=== PATIENT | female | born 1940 | race Caucasian/White ===

== ENCOUNTER 2016-05-13 05:11 | Inpatient (IN) | payer OTHER, MEDICARE ==
[2016-04-15 09:55] VITALS: BMI 31.0
--- NOTE | 2016-04-15 10:28 | PAT Medication Instructions ---
Service Date Apr 15, 2016. Current Home Medication List Acetaminophen (Tylenol Arthritis Ext Rel), 1,300 MG PO PRN Calcium Carbonate-Vitamin D (Calcium + D), 1 TAB PO BID Cyanocobalamin (Vitamin B12 500MCG), 1,000 MCG PO QPM Gabapentin (Neurontin), 300 MG PO TID PRN for RN Lisinopril (Zestril), 10 MG PO QAM Metoprolol Succ (Toprol Xl) (Toprol-Xl), 50 MG PO QPM Omeprazole (Prilosec), 40 MG PO QPM Pravastatin (Pravachol ), 80 MG PO QPM Medication Instructions For Your Scheduled Surgery - Hold the following medications the morning of surgery: Lisinopril (Zestril), 10 MG PO QAM Calcium Carbonate-Vitamin D (Calcium + D), 1 TAB PO BID - Take the following medications the morning of surgery with a sip of water: Gabapentin (Neurontin), 300 MG PO TID PRN for RN Acetaminophen (Tylenol Arthritis Ext Rel), 1,300 MG PO PRN - Take the following medications as scheduled the night before surgery: Omeprazole (Prilosec), 40 MG PO QPM Pravastatin (Pravachol ), 80 MG PO QPM Metoprolol Succ (Toprol Xl) (Toprol-Xl), 50 MG PO QPM Gabapentin (Neurontin), 300 MG PO TID PRN for RN Cyanocobalamin (Vitamin B12 500MCG), 1,000 MCG PO QPM Calcium Carbonate-Vitamin D (Calcium + D), 1 TAB PO BID Acetaminophen (Tylenol Arthritis Ext Rel), 1,300 MG PO PRN If you have any questions please call us at [phone] (Brenda Isbell PA-C) or [phone] or [phone]
[2016-04-15 11:21] LABS: BASO % 0.5 %; BASO ABS # 0.03 K/uL (0-0.2); COMPLETE YES; EOS % 1.1 %; HEMATOCRIT 35.3 % (37-47); IG% 0.2 %; LYMPH % 26.4 %; LYMPH ABS # 1.63 K/uL (1.2-3.4); MEAN CELL VOLUME 91.9 fL (80-100); MEAN CORPUSCULAR HEMOGLOBIN 30.2 pg (25-34); MEAN CORPUSCULAR HGB CONC 32.9 g/dl (32-36); MEAN PLATELET VOLUME 10.1 fL (7.4-10.4); MONO % 9.2 %; NEUT % 62.6 %; PLATELET COUNT 202 K/uL (130-400); RED BLOOD COUNT 3.84 M/uL (4.2-5.4); WHITE BLOOD COUNT 6.18 K/uL (4.8-10.8)
[2016-04-15 11:28] LABS: URINE APPEARANCE CLEAR (CLEAR); URINE BILIRUBIN NEG (NEG); URINE COLOR YELLOW; URINE NITRITE NEG (NEG); URINE PH 7.5 (4.5-7.5); URINE SPECIFIC GRAVITY 1.007 (1.000-1.030); UROBILINOGEN NEG (NEG)
[2016-04-15 11:32] LABS: MANUAL MICROSCOPIC REQUIRED? NO; REVIEW REQ? NO
--- NOTE | 2016-04-15 11:34 | DIAGNOSTIC IMAGING REPORT ---
CHEST PREADMISSION(PA/LAT) HISTORY: Preop. COMPARISON: None. FINDINGS: No pneumothorax. No pleural effusions. There are low lung volumes. The heart is borderline enlarged. Mildly tortuous thoracic aorta. A 6 mm nodule within the left lower lobe likely represents a calcified granuloma. Mild interstitial thickening within the mid lung zones. Posterior lumbar spinal fusion hardware is noted. IMPRESSION: 1. Mild interstitial thickening within the mid lung zones. This is likely chronic. 2. The heart is borderline enlarged. Electronically signed by: Chris Baeza M.D. 04/15/2016 11:32 AM
[2016-04-15 12:14] LABS: BUN/CREATININE RATIO 18.7 (10-20); CALCIUM 10.5 mg/dl (8.5-10.1); CREATININE 0.65 mg/dl (0.60-1.20); POTASSIUM 4.1 mmol/L (3.5-5.1)
[~2016-05-13] VITALS: Ht 154.9 cm; Wt 74.4 kg
[2016-05-13] VITALS (16 sets, daily range): BP systolic 120–196; BP diastolic 66–94; PULSE 65–99; TEMP 36.5–37.5; O2SAT 97–100; Ht 154.9 cm; Wt 74.4 kg
[~2016-05-13 05:11] MED LIST: ACET1TAB84 PO; CALC600T9 PO; CYAN500T13 PO; GABA-113 PO; LISI-461 PO; METO50TA7 PO; OMEP40CA PO; PRAV20TA PO
[2016-05-13] MEDS ORDERED: LACTATED RINGER'S 1000ML 1,000 ML IV SCH (06:00)
[2016-05-13] MEDS ORDERED: CEFAZOLIN 1000MG/55 ML D5W IV SCH (06:00)
[2016-05-13] MEDS ORDERED: ATROPINE SULFATE 0.1 MG/ML 5ML SYR IV PRN (07:00)
[2016-05-13] MEDS ORDERED: ONDANSETRON INJ 2 MG/ML 2 ML VIAL IV PRN ×2 (07:00→09:30)
[2016-05-13] MEDS ORDERED: FENTANYL CITRATE INJ 50 MCG/1 ML 2 ML VIAL IV PRN (07:00)
[2016-05-13] MEDS ORDERED: EpHEDrine SULFATE INJ 50 MG/ML AMP IV PRN (07:00)
[2016-05-13] MEDS ORDERED: MoRPHine SULFATE 10 MG/ML CARP/VIAL IV PRN (07:00)
[2016-05-13] MEDS ORDERED: FENTANYL CITRATE INJ 50 MCG/1 ML 2 ML VIAL ONE (07:02)
[2016-05-13] MEDS ORDERED: MIDAZOLAM HCL 1 MG/ML 2ML VIAL ONE (07:02)
[2016-05-13] MEDS ORDERED: KETAMINE HCL INJ 50 MG/ML 10 ML VIAL ONE (07:03)
--- NOTE | 2016-05-13 07:20 | History & Physical Bridge Note ---
H&P Re-Evaluation Bridge Note: I have examined the patient, reviewed the History & Physical and in the interval since the performance of the History & Physical I have noted the following changes of clinical significance: No changes noted
--- NOTE | 2016-05-13 07:23 | History and Physical ---
History & Physical Date May 13, 2016. Chief Complaint neck and arm pain History of Present Illness The patient is a 76 year old female with complaints of Additional History Hepatic Disease: No Endocrine Disorder: No Kidney Disease: No Hypertension: No Heart Disease: No Bleeding Tendencies: No Infectious Diseases: No Allergies Coded Allergies: Sulfa Antibiotics (Verified Allergy, Unknown, ITCHY RASH, 05/13/16) Home Medications Scheduled Acetaminophen (Tylenol Arthritis Ext Rel), 1,300 MG PO PRN Calcium Carbonate-Vitamin D (Calcium + D), 1 TAB PO BID Cyanocobalamin (Vitamin B12 500MCG), 1,000 MCG PO QPM Lisinopril (Zestril), 10 MG PO QAM Metoprolol Succ (Toprol Xl) (Toprol-Xl), 50 MG PO QPM Omeprazole (Prilosec), 40 MG PO QAM Pravastatin (Pravachol ), 80 MG PO QPM Scheduled PRN Gabapentin (Neurontin), 300 MG PO TID PRN for RN Physical Examination Skin: warm/dry, no rash Eyes: normal inspection, EOMI, sclerae normal ENT: normal ENT inspection, pharynx normal Head: normocephalic, atraumatic Neck: supple, no adenopathy, trachea midline Respiratory/Chest: lungs clear, normal breath sounds, no respiratory distress Cardiovascular: regular rate, rhythm, no edema, no murmur Abdomen / GI: normal bowel sounds, non tender Back: normal inspection Extremities: normal inspection, normal range of motion Neurologic/Psych: no motor/sensory deficits, alert, normal reflexes, oriented x 3 Diagnosis cervical stenosis Plan of Treatment c5 corpectomy with acdf c6-7
[2016-05-13] MEDS ORDERED: HYDROmorphone INJ 2 MG/ML SYR/VIAL ONE (07:51)
[2016-05-13] MEDS ORDERED: SODIUM CHLORIDE 0.9% INJ 10 ML VIAL ONE (08:17)
[2016-05-13] MEDS ORDERED: DEXAMETHASONE SOD INJ 4 MG/ML VIAL ONE (08:17)
[2016-05-13] MEDS ORDERED: GLYCOPYRROLATE INJ 0.2 MG/ML VIAL ONE (08:17)
[2016-05-13] MEDS ORDERED: PROPOFOL IV EMULSION 10 MG/ML 20 ML VIAL IV ONE (08:17)
[2016-05-13] MEDS ORDERED: ONDANSETRON INJ 2 MG/ML 2 ML VIAL ONE (08:17)
[2016-05-13] MEDS ORDERED: DiphenhydrAMINE HCL 50 MG/ML VIAL ONE (08:17)
[2016-05-13] MEDS ORDERED: METOCLOPRAMIDE HCL INJ 5 MG/ML 2 ML VIAL ONE (08:17)
[2016-05-13] MEDS ORDERED: ROCURONIUM BROMIDE 10 MG/ML 5 ML VIAL ONE (08:17)
[2016-05-13] MEDS ORDERED: LIDOCAINE HCL 2% 2 ML VIAL (20MG/ML) ONE (08:17)
[2016-05-13] MEDS ORDERED: CEFAZOLIN SOD 1 GM VIAL ONE (08:17)
[2016-05-13] MEDS ORDERED: NEOSTIGMINE METHYLSULFATE 1 MG/ML 10ML VIAL ONE (08:17)
[2016-05-13] MEDS ORDERED: BACITRACIN 50000 UNIT VIAL IR ONE (09:15)
[2016-05-13] MEDS ORDERED: FLOSEAL HEMOSTATIC MATRIX 5ML TOP ONE (09:15)
--- NOTE | 2016-05-13 09:24 | [facility] Post Operative Brief Note ---
Immediate Operative Summary Operative Date May 13, 2016. Pre-Operative Diagnosis Cervical stenosis Post-Operative Diagnosis Cervical stenosis Procedure(s) Performed C6-C7 Anterior Cervical Discectomy and Fusion; C5 Removal of Intervertebral Disc; Corpectomy C5 C6-C7 Decompression; Placement of Prosthetic Spacer C6-C7/Denisse Allograft; Anterior Plate and Screw Fixation Surgeon Dr. Amish Kelly Green Hide Inspector Surgeon(s) KIM Verduzco Estimated Blood Loss 150mL Findings stenosis Specimens None per surgeon
[2016-05-13] MEDS ORDERED: HYDROmorphone INJ 1 MG/ML SYR IV PRN (09:30)
[2016-05-13] MEDS ORDERED: DO NOT ADMINISTER PNEUMOCOCCAL VACCINE PRN ×2 (09:30)
[2016-05-13] MEDS ORDERED: NALOXONE HCL 0.4 MG/1 ML VIAL/CARP IV PRN (09:30)
[2016-05-13] MEDS ORDERED: DEXAMETHASONE INJ 8 MG in SYRINGE 0 ML IV PRN (09:30)
[2016-05-13] MEDS ORDERED: RACEPINEPHRINE 2.25% NEBU SOLN 0.5 ML VIAL INH PRN (09:30)
[2016-05-13] MEDS ORDERED: OXYCODONE HCL IR 5 MG TAB (IMMEDIATE RELEASE) PO PRN (09:30)
[2016-05-13] MEDS ORDERED: MAGNESIUM HYDROXIDE SUSP 30 ML UDC PO PRN (09:30)
[2016-05-13] MEDS ORDERED: GABAPENTIN 300 MG CAP PO PRN (09:30)
[2016-05-13] MEDS ORDERED: LORAZEPAM 0.5 MG TAB PO PRN (09:30)
[2016-05-13] MEDS ORDERED: DO NOT ADMINISTER FLU VACCINE PRN ×3 (09:30)
[2016-05-13] MEDS ORDERED: ACETAMINOPHEN IV 1,000 MG in EMPTY BAG 0 ML IV PRN (09:30)
[2016-05-13] MEDS ORDERED: LORAZEPAM INJ 0.5 MG in SYRINGE 0.75 ML IV PRN (09:30)
[2016-05-13] MEDS ORDERED: DiphenhydrAMINE HCL 50 MG/ML VIAL IV PRN (09:30)
[2016-05-13] MEDS ORDERED: EpHEDrine SULFATE 50MG/5ML SYR ONE (09:45)
--- NOTE | 2016-05-13 10:01 | DIAGNOSTIC IMAGING REPORT ---
Cervical spine CERVICAL 2 OR 3 VIEWS CLINICAL HISTORY: C6-C7 ACDF, C5 REMOVAL OF DISC, C6-C7 DECOMPRESSION TECHNIQUE: Image intensifier COMPARISON STUDY: None FINDINGS: Image intensifier images used for an anterior cervical fusion and revision. IMPRESSION: Anterior cervical fusion and revision Electronically signed by: Rk Cleary M.D. 05/13/2016 10:00 AM Dictated Date/Time: 05/13/2016 9:59 AM
--- NOTE | 2016-05-13 10:45 | Anesthesiology Progress Note ---
Anesthesia Post Op Note Date & Time May 13, 2016 at 10:45 Vital Signs Pain Intensity: 0 Vital Signs Past 12 Hours Date Time Temp Pulse Resp B/P Pulse Ox O2 Delivery O2 Flow Rate FiO2 05/13/16 10:40 70 19 168/90 100 Nasal Cannula 2 05/13/16 10:30 73 19 175/79 100 Nasal Cannula 2 05/13/16 10:20 76 20 173/61 100 Nasal Cannula 2 05/13/16 10:10 66 15 158/76 100 Nasal Cannula 2 05/13/16 10:00 71 15 170/77 100 Nasal Cannula 2 05/13/16 09:50 36.6 64 14 164/76 100 Mask 10 05/13/16 09:40 36.6 65 16 163/79 100 Mask 10 05/13/16 05:42 36.7 65 18 196/83 100 Room Air Notes Mental Status: alert / awake / arousable, participated in evaluation Pt Amnestic to Procedure: Yes Nausea / Vomiting: adequately controlled Pain: adequately controlled Airway Patency, RR, SpO2: stable & adequate BP & HR: stable & adequate Hydration State: stable & adequate Anesthetic Complications: no major complications apparent
--- NOTE | 2016-05-13 11:18 | OPERATIVE REPORT ---
DATE OF OPERATION: 05/13/2016 PREOPERATIVE DIAGNOSIS: Cervical spondylosis with myeloradiculopathy. POSTOPERATIVE DIAGNOSIS: Same. PROCEDURE PERFORMED: 1. Anterior cervical corpectomy, bilateral foraminotomy C5. 2. Anterior cervical discectomy, bilateral foraminotomies, C6-C7. 3. Anterior cervical arthrodesis C4-C6, C6-C7. 4. Placement of PEEK cage 19 mm in height at C4-C6 and 7 mm at C6-C7. 5. Placement of Broussard plate and screws C4-C7. 6. Placement of locally harvested morcellized autograft combined with Denisse bone graft in the interbody spaces. SURGEON: Dr. Amish Kelly. SALES ASSOCIATE: None. ANESTHESIA: General. DISPOSITION: The patient awakened and taken to PACU in stable condition. HISTORY OF PATIENT'S PROBLEMS: This is a 76-year-old female that presents with above-mentioned diagnosis. After failing an extensive course of nonoperative care, elected to undergo the above-mentioned procedure. Risks, benefits, pros, cons, and alternatives were outlined in detail preoperatively. PROCEDURE: The patient was met preoperatively, case discussed and all questions were addressed. At that point the patient was taken back to operative suite and after undergoing successful general inhalation by the department of anesthesia was placed in supine position on Shabbir table with head in Quick head coach. All bony prominences were well padded and the eyes were inspected to ensure there was no external pressure placed upon them. At this point, the anterior cervical spine was prepped and draped in normal sterile fashion. With assistance of fluoroscopy, we identified the C5-C6 disc space and transverse incision was placed along the right anterior aspect of the cervical spine overlying this region. Sharp dissection with the assistance of bipolar electrocautery performed down to and exposing the anterior cervical spine from C4-C7. A self-retaining retractor was placed. I then performed a complete discectomy of C4-5 and C5-6 out to the uncovertebral joints bilaterally. Waldron distracting pins were then placed in C4 and C6 to distract across the C5 vertebral body. A complete corpectomy was then performed including removal of all posterior annular fibers and longitudinal ligament to address any compression. Endplates were then burred to subcortical bleeding bone and a 19 mm PEEK cage filled with locally harvested morcellized autograft and Denisse bone grafting tapped into position. I then proceeded to C6-7. Again, a complete discectomy was performed, endplates curetted to subcortical bleeding bone and removal of all posterior annular fibers and longitudinal ligaments from bilateral foraminotomies. The endplates were then burred to subcortical bleeding bone and a 7 mm PEEK cage filled with Denisse bone grafting and autograft tapped into position. Distracting apparatus was removed. All anterior osteophytes burred to a smooth cortical surface and Broussard plate and screws applied with the assistance of fluoroscopy. The incision was then copiously irrigated, explored to ensure there was no damage to surrounding structures or remaining bleeding. A 10 round MARTHA drain inserted. It was then closed with 2-0 Vicryl in the fascia, 4-0 Monocryl for final skin closure. Steri-Strips and sterile dressing placed. The patient was awakened and taken to PACU in stable condition. I attest to the content of the Intraoperative Record and any orders documented therein. Any exceptio ns are noted below.
[2016-05-13] MEDS ORDERED: LARYING-O-JET KIT (LTA) EXT ONE ×2 (11:39)
[2016-05-13] MEDS ORDERED: SCOPOLAMINE 1.5 MG TDSY TD SCH (12:00)
[2016-05-13] MEDS: LACTATED RINGER'S 1000ML 1,000 ML IV SCH ×2 (12:04→22:04)
[2016-05-13] MEDS: DEXAMETHASONE INJ 6 MG in SYRINGE 0 ML IV SCH ×2 (12:05→20:06)
[2016-05-13] MEDS: CHECK SCOPOLAMINE PATCH PLACEMENT SCH ×2 (15:53→23:46)
[2016-05-13] MEDS: CEFAZOLIN IV 1,000 MG in DEXTROSE 5% 50ML 50 ML IV SCH ×2 (15:58→23:45)
[2016-05-13] MEDS ORDERED: RXC5 PO (16:21)
--- NOTE | 2016-05-13 16:22 | Discharge Instructions ---
Discharge Instructions Admission Reason for Admission: Cervical Spinal Stenosis Discharge Discharge Diagnosis / Problem: cervical stenosis Discharge Goals Goal(s): Improve function Activity Recommendations Activity Limitations: per Instructions/Follow-up section . Instructions / Follow-Up Instructions / Follow-Up ACTIVITY RECOMMENDATIONS: SELF CARE INSTRUCTIONS AFTER CERVICAL FUSIONS 1. No smoking. Smoking drastically decreases the chance of a solid fusion. 2. No bending, lifting more than 5 pounds, or twisting (roll like a log when turning in bed). 3. You may shower 3 days after surgery. Thoroughly dry wound. Do not soak in the tub. 4. Cervical collar: Must be worn at all times including sleeping. You may remove the brace only to bath, eat and if you are sitting in a recliner. 5. Please walk as much as you can for exercise. Gradually increase the distance that you walk as your endurance increases. SPECIAL CARE INSTRUCTIONS: VERY IMPORTANT TO READ AND REVIEW A. Do not take any anti-inflammatory medications (i.e. Indocin, Advil, Aspirin, Naprosyn, Aleve, Motrin, etc.) as these may inhibit the chance of a solid fusion. Tylenol is okay to take. B. Your surgical incision has been closed with a cosmetic suture under the skin that will dissolve in about 6 weeks. In 14 days, you can use a pair of clean scissors and cut the suture that is left outside of the skin at the ends of your incision. C. Complications are uncommon, but please contact us if you have any signs or symptoms of: 1. wound infection (fever higher than 102.5 degrees F, redness, separation of wound, drainage, or increasing pain from the incision) 2. blood clots in legs (pain, swelling, redness and warmth in legs) 3. urinary tract infection (fever higher than 102.5 degrees, burning upon urination or increased frequency of urination) 4. nerve problems (inability to walk on your toes or heels, numbness, loss of bowel or bladder control) 5. any other symptoms that concern you. D. Please call the office at if you have any concerns or questions about your operation or recovery. MANAGING PAIN AFTER SPINAL SURGERY 1. Narcotic medication is intended for short-term use and will be provided for surgical pain. Surgical pain usually lasts for a period of 4-6 weeks. Narcotic medication includes Percocet, Vicodin, Darvocet, Tylenol #3 or Lortab. 2. Longer-term pain is more appropriately treated with non-narcotic medication such as Tylenol ES. 3. Muscle spasm is not appropriately treated with narcotics. Muscle relaxers such as Soma, Flexeril or Skelaxin can be used along with Tylenol ES. 4. Remember that we all live with some "aches and pains". This is not unusual or uncommon after an injury or as we get older. 5. We will provide appropriate medication within the normal guidelines of their prescribed use. We will also be very cautious and aware of potential abuse and extended duration of patients' medication needs. 6. Please allow 2-3 days to process refills. Prescriptions will not be mailed but must be picked up at the office. FOLLOW UP VISIT: Keep your scheduled follow-up appointment. Any questions, please call the office at . Current Hospital Diet Patient's current hospital diet: Clear Liquid Diet Discharge Diet Recommended Diet: Regular Diet Procedures Procedures Performed: C6-C7 Anterior Cervical Discectomy and Fusion; C5 Removal of Intervertebral Disc; Corpectomy C5 C6-C7 Decompression; Placement of Prosthetic Spacer C6-C7/Denisse Allograft; Anterior Plate and Screw Fixation Pending Studies Studies pending at discharge: no Medical Emergencies . Who to Call and When: Medical Emergencies: If at any time you feel your situation is an emergency, please call 911 immediately. . Non-Emergent Contact Non-Emergency issues call your: Primary Care Provider . "Provider Documentation" section prepared by Amish Kelly. VTE Core Measure Inpt VTE Proph given/why not?: Markel Perdomo, SCD's
[2016-05-13] MEDS ORDERED: METOPROLOL SUCC 50MG EXT REL TAB PO SCH (21:00)
[2016-05-13] MEDS ORDERED: PRAVASTATIN SOD 40 MG TAB PO SCH (21:00)
[2016-05-13] MEDS: DOCUSATE SODIUM 100 MG CAP PO SCH (22:03)
[2016-05-14] VITALS (13 sets, daily range): BP systolic 117–161; BP diastolic 62–77; PULSE 72–99; TEMP 36.8–37.3; O2SAT 97–100
[2016-05-14] MEDS: DEXAMETHASONE INJ 6 MG in SYRINGE 0 ML IV SCH (03:56)
[2016-05-14] MEDS: CEFAZOLIN IV 1,000 MG in DEXTROSE 5% 50ML 50 ML IV SCH (07:49)
[2016-05-14] MEDS: CHECK SCOPOLAMINE PATCH PLACEMENT SCH (07:50)
[2016-05-14] MEDS: DOCUSATE SODIUM 100 MG CAP PO SCH (07:53)
--- NOTE | 2016-05-14 08:30 | DISCHARGE SUMMARY ---
DATE OF DISCHARGE: 05/14/16 PRINCIPAL DIAGNOSIS: Cervical spinal stenosis. HOSPITAL COURSE FOLLOWS: On 05/13/16 patient underwent anterior cervical corpectomy, ACDF. Tolerated this well. Taken to orthopedic floor postoperatively. Postop day #1 she was doing well. No hoarseness, arm symptoms markedly improved. MARTHA drain decreased appropriately. Discharge orders on final chart for review.
[2016-05-14] MEDS ORDERED: LISINOPRIL 10 MG TAB PO SCH (09:00)
[2016-05-14] MEDS ORDERED: PANTOprazole SOD 40 MG TAB PO SCH (09:00)
--- NOTE | 2016-05-14 10:01 | Anesthesiology Progress Note ---
Anesthesia Post Op Note Date & Time May 14, 2016 at 10:01 Vital Signs Pain Intensity: 0.0 Vital Signs Past 12 Hours Date Time Temp Pulse Resp B/P Pulse Ox O2 Delivery O2 Flow Rate FiO2 05/14/16 08:05 36.8 74 16 154/77 97 Room Air 05/14/16 08:02 36.8 73 16 138/70 98 Room Air 05/14/16 07:57 72 14 97 Room Air 05/14/16 06:05 37.2 80 16 161/69 99 Nasal Cannula 2.0 05/14/16 04:01 36.9 76 16 131/74 98 Nasal Cannula 2.0 Humidified Oxygen 05/14/16 03:40 36.9 76 16 131/74 98 Nasal Cannula 2.0 Humidified Oxygen 05/14/16 03:21 76 14 100 Nasal Cannula 2.0 05/14/16 02:00 37.1 81 16 117/68 100 Nasal Cannula 2.0 Humidified Oxygen 05/14/16 00:03 37.3 99 16 120/66 100 Nasal Cannula 2.0 Humidified Oxygen 05/14/16 00:00 100 Nasal Cannula 2.0 Humidified Oxygen 05/13/16 23:40 37.3 99 16 120/66 100 Nasal Cannula 2.0 Humidified Oxygen 05/13/16 23:26 82 14 100 Nasal Cannula 2.0 Notes Mental Status: alert / awake / arousable, participated in evaluation Pt Amnestic to Procedure: Yes Nausea / Vomiting: adequately controlled Pain: adequately controlled Airway Patency, RR, SpO2: stable & adequate BP & HR: stable & adequate Hydration State: stable & adequate Anesthetic Complications: no major complications apparent
[2016-05-15] MEDS ORDERED: BISACODYL 5 MG TABEC PO PRN (06:00)
[2016-05-15] MEDS ORDERED: BISACODYL 10 MG SUPP PR PRN (06:00)
[2016-05-16] MEDS ORDERED: POLYETHYLENE (MIRALAX) 17 GM PACK PO SCH (09:00)
== END 2016-05-14 13:13 | disposition home or self-care (01) | DRG 472 ==
LOC: ENRESERVTM → ENRESERVDT → C.ACU 05:11 → C.3E 07:00
PROVIDERS: ADMIT Orthopaedic Surgery Orthopaedic Surgery of the Spine; ATTEND Orthopaedic Surgery Orthopaedic Surgery of the Spine
PROC: 0RG2070 Fusion of 2 or more Cervical Vertebral Joints with Autologous Tissue Substitute, Anterior Approach, Anterior Column, Open Approach (ICD-10-PCS; principal; 2016-05-13 07:30)
PROC: 01N10ZZ Release Cervical Nerve, Open Approach (ICD-10-PCS; principal; 2016-05-13 07:30)
PROC: 0RT30ZZ Resection of Cervical Vertebral Disc, Open Approach (ICD-10-PCS; principal; 2016-05-13 07:30)
PROC: 0RG20A0 Fusion of 2 or more Cervical Vertebral Joints with Interbody Fusion Device, Anterior Approach, Anterior Column, Open Approach (ICD-10-PCS; principal; 2016-05-13 07:30)
PROC: 00NW0ZZ Release Cervical Spinal Cord, Open Approach (ICD-10-PCS; principal; 2016-05-13 07:30)
DX: M48.02 Spinal stenosis, cervical region (principal); M47.12 Other spondylosis with myelopathy, cervical region; M47.22 Other spondylosis with radiculopathy, cervical region; I10 Essential (primary) hypertension; E78.5 Hyperlipidemia, unspecified; K21.9 Gastro-esophageal reflux disease without esophagitis; M19.90 Unspecified osteoarthritis, unspecified site; G62.9 Polyneuropathy, unspecified; D50.9 Iron deficiency anemia, unspecified; E66.9 Obesity, unspecified; Z68.31 Body mass index [BMI] 31.0-31.9, adult; Z79.899 Other long term (current) drug therapy

== ENCOUNTER 2018-12-28 08:12 | Inpatient (IN) ==
--- NOTE | 2018-12-20 13:54 | PAT Medication Instructions ---
Medication Instructions Date of Service December 20, 2018 Home Medications acetaminophen [Acetaminophen Extra Strength] 500 mg PO Q6H PRN calcium carbonate-vitamin D3 1 tab PO BID cyanocobalamin (vitamin B-12) [Vitamin B-12] 1,000 mcg PO Q OTHER DAY gabapentin 300 mg PO TID lisinopril 10 mg PO QAM metoprolol succinate 50 mg PO QPM rabeprazole [AcipHex] 20 mg PO QAM rosuvastatin 10 mg PO QPM DO NOT take the morning of surgery calcium carbonate-vitamin D3 1 tab PO BID cyanocobalamin (vitamin B-12) [Vitamin B-12] 1,000 mcg PO Q OTHER DAY lisinopril 10 mg PO QAM Take morning of surgery With a small sip of water, OTHERWISE NOTHING TO EAT OR DRINK AFTER MIDNIGHT: acetaminophen [Acetaminophen Extra Strength] 500 mg PO Q6H PRN (okay to take up to 4 hours prior to surgery if needed) gabapentin 300 mg PO TID rabeprazole [AcipHex] 20 mg PO QAM Take evening before surgery acetaminophen [Acetaminophen Extra Strength] 500 mg PO Q6H PRN (if needed) calcium carbonate-vitamin D3 1 tab PO BID gabapentin 300 mg PO TID metoprolol succinate 50 mg PO QPM rosuvastatin 10 mg PO QPM Other Notes If you have any questions please call us at [phone] or [phone] or [phone] or [phone]
--- NOTE | 2018-12-21 08:58 | Anesthesiology Consultation ---
Date of Service December 21, 2018 Assessment & Plan (1) Encounter for pre-operative examination: Cardiology: 12/14/18: Improvement with venous insufficiency/slight phlebitis with compression stockings and moisturizer. "From at CV standpoint would consider her a low risk for an ischemic event." Chart Review Chart Review: Pending: Refer to Additional Notes / Consult section (pending preop testing (labs, CXR)) and Patient seen in Pre Admission Testing Teaching & Discussion Pre-Anesthesia Teaching/Discussion Notes: Instructed NPO after midnight before surgery,except medications with 15 cc of water. Medication instructions provided according to the PAT guidelines. History Surgery Operation Date: 12/28/18 10:25 Proposed Procedures p L5-S1 Decompression, L4-L5 Posterior Spinal Fusion, Possible Iliac Bolts, Possible Interbody Fusion, L2-L4 Hardware Removal, Spinal Cord Monitoring - Amish Kelly, Height/Weight Height: 5 ft Weight: 69.2 kg Allergies Allergy/AdvReac Type Severity Reaction Status Date / Time Sulfa (Sulfonamide Allergy Unknown PRURITUS, Verified 12/21/18 09:01 Antibiotics) RASH Medications Home Medications Medication Instructions Recorded Confirmed Last Taken acetaminophen [Acetaminophen Extra 500 mg PO Q6H PRN 12/14/18 12/14/18 Unknown Strength] calcium carbonate-vitamin D3 1 tab PO BID 12/14/18 12/14/18 Unknown cyanocobalamin (vitamin B-12) 1,000 mcg PO Q OTHER DAY 12/14/18 12/14/18 Unknown [Vitamin B-12] gabapentin 300 mg PO TID 12/14/18 12/14/18 Unknown lisinopril 10 mg PO QAM 12/14/18 12/14/18 Unknown metoprolol succinate 50 mg PO QPM 12/14/18 12/14/18 Unknown rabeprazole [AcipHex] 20 mg PO QAM 12/14/18 12/14/18 Unknown rosuvastatin 10 mg PO QPM 12/14/18 12/14/18 Unknown Past Medical History Medical History Anemia Arthritis GERD (gastroesophageal reflux disease) controlled Hyperlipidemia Hypertension Spinal stenosis Exercise / Class Metabolic Activity II 4-5 Yardwork/Stairs/Walk up hill Past Surgical History Surgical History History of lumbar fusion History of varicose vein ligation and stripping Hx of cervical spine surgery fusion Hx of left cataract extraction Hx of right cataract extraction Past Anesthesia History No Hx of Anesthesia Complications and No Family Hx of Anesthesia Complications History of PONV No Hx of PONV and No Hx of Motion Sickness Social History Smoking Status: Never smoker Do You Dip or Chew Tobacco: No Hx Alcohol Use: No Hx Substance Use: No Review of Systems Reflux controlled. Patient denies chest pain, shortness of breath, dyspnea on exertion, cough, wheezing, palpitations. Physical Exam Vital Signs VITALS BP 162/83 P 59 TEMP 97.8 SP02 98%RA RESP 16 PHYSICAL Full neck and c-spine range of motion. Full TMJ range of motion. TMD 3 finger breaths Mallampati Score 2 Dentition: intact, single crown (patient unsure of location) Lungs: clear throughout to auscultation Cardiac: regular rate and rhythm, no murmurs noted Spine: normal Carotid arteries: negative bruit Extremities: no edema Testing Electrocardiogram Date: 12/14/18 Findings: + SB @ (54) Echocardiogram Date: 11/02/18 EF 55%. No RWMA. Borderline cLVH. Mild LAD. RVSP elevated at 30-40mmhg. No significant valvular disease.
--- NOTE | 2018-12-21 09:57 | XRay Report ---
XR chest Pre-admission PA/Lat CLINICAL HISTORY: pat preoperative COMPARISON STUDY: 04/15/2016 FINDINGS: Mild chronic parenchymal fibrotic change throughout both hemithoraces. Mild emphysematous c hange. No acute process. Significant degenerative changes thoracic spine unaltered from the prior padmaja dy. IMPRESSION: Chronic change. No acute process. The above report was generated using voice recognition software. It may contain grammatical, syntax or spelling errors. Electronically signed by: Rk Cleary M.D. 12/21/2018 9:56 AM
[2018-12-21 11:02] LABS: Basophils # (auto) 0.03 K/uL (0-0.2); Basophils % (auto) 0.5 %; Eosinophils # (auto) 0.08 K/uL (0-0.5); Eosinophils % (auto) 1.4 %; Hematocrit (blood only) 39.9 % (37-47); Immature Granulocytes # (auto) 0.02 K/uL (0.00-0.02); Immature Granulocytes % (auto) 0.4 %; Lymphocytes # (auto) 1.49 K/uL (1.2-3.4); Lymphocytes % (auto) 26.2 %; Mean Corpuscular Hemoglobin 31.6 pg (25-34); Mean Corpuscular Hgb Conc 32.6 g/dL (32-36); Mean Corpuscular Volume 96.8 fL (80-100); Mean Platelet Volume 10.7 fL (7.4-10.4); Monocytes # (auto) 0.54 K/uL (0.11-0.59); Monocytes % (auto) 9.5 %; Neutrophils # (auto) 3.53 K/uL (1.4-6.5); Platelet Count 181 K/uL (130-400); RDW Coefficient of Variation 13.1 % (11.5-14.5); RDW Standard Deviation 45.7 fL (36.4-46.3); Red Blood Count 4.12 M/uL (4.2-5.4); White Blood Count 5.69 K/uL (4.8-10.8)
[2018-12-21 11:06] LABS: Appearance Urine Clear (Clear); Bacteria Urine Automated Negative (Negative); Bilirubin Urine Negative (Negative); Blood Urine Negative (Negative); Color Urine Yellow; Glucose Urine UA Negative (Negative); Ketones Urine Negative (Negative); Leukocyte Esterase Urine 1+ (Negative); Nitrite Urine Negative (Negative); Protein Urine Negative (Negative); RBC Urine Automated 0-4 /hpf (0-4); Specific Gravity Urine 1.012 (1.000-1.030); Urobilinogen Urine Negative (Negative); pH Urine 6.5 (4.5-7.5)
[2018-12-21 11:09] LABS: BUN Creatinine Ratio 17.4 (10-20); Calcium 9.7 mg/dl (8.5-10.1); Creatinine Clr Calc Pharmacy 49.1 ml/min; Est GFR (African American) 79.4; Est GFR (Non-African American) 68.5; Potassium 4.2 mmol/L (3.5-5.1)
[2018-12-21 11:14] LABS: Partial Thromboplastin Time 26.2 Seconds (21.0-31.0)
[~2018-12-28 08:12] MED LIST changes: -ACET1TAB84 PO; +ACETAMINOPHEN 500 MG TAB PO SCH; -CALC600T9 PO; +CEFAZOLIN 1000MG 1,000 MG/7.5 ML SYR IV SCH; -CYAN500T13 PO; -GABA-113 PO; +GABAPENTIN 300 MG CAP PO SCH; -LISI-461 PO; +LR 15ML/HR IV SCH; -METO50TA7 PO; -OMEP40CA PO; -PRAV20TA PO
[2018-12-28] MEDS ORDERED: fentaNYL citrate 100 MCG/2 ML VIAL ONE ×5 (08:20→12:39)
[2018-12-28] MEDS ORDERED: HYDROmorphone INJ 2 MG/ML SYR/VIAL ONE ×3 (08:20→10:42)
[2018-12-28] MEDS ORDERED: MIDAZOLAM HCL 1 MG/ML 2ML VIAL ONE (08:20)
[2018-12-28] MEDS ORDERED: NEOSTIGMINE METHYLSULFATE 1 MG/ML 10ML VIAL ONE (09:30)
[2018-12-28] MEDS ORDERED: LIDOCAINE HCL 2% 2 ML VIAL/AMP(20MG/ML) INFIL ONE (09:30)
[2018-12-28] MEDS ORDERED: GLYCOPYRROLATE 0.2 MG/ML VIAL ONE (09:30)
[2018-12-28] MEDS ORDERED: PROPOFOL IV EMULSION 10 MG/ML 20 ML VIAL IV ONE (09:30)
[2018-12-28] MEDS ORDERED: ONDANSETRON INJ 2 MG/ML 2 ML VIAL ONE (09:30)
[2018-12-28] MEDS ORDERED: ROCURONIUM BROMIDE 10 MG/ML 5 ML VIAL ONE (09:30)
[2018-12-28] MEDS ORDERED: DEXAMETHASONE SOD INJ 4 MG/ML VIAL ONE (09:30)
[2018-12-28] MEDS ORDERED: SCOPOLAMINE 1.5 MG TDSY ONE (10:01)
--- NOTE | 2018-12-28 10:05 | History & Physical Bridge Note ---
Date of Service December 28, 2018 History & Physical Bridge Note I have examined the patient, reviewed the History & Physical and in the interval since the performance of the History & Physical I have noted the following changes of clinical significance: no changes noted
--- NOTE | 2018-12-28 10:06 | History & Physical Report ---
Date of Service December 28, 2018 Assessment & Plan (1) Spinal stenosis, lumbar region with neurogenic claudication: Decompression L5-S1 posterior spinal fusion L4-5 possible iliac bolts possible interbody fusion hardware removal L2-L4 Present on Admission?: Yes History of Present Illness Chief Complaint: Back and bilateral leg pain Primary Care Provider: Ana Mena PA-C This is a 70-year-old female well-known to me that presents with worsening back and bilateral leg pain. After failing extensive course of nonoperative care is here for surgical intervention. Allergies Allergy/AdvReac Type Severity Reaction Status Date / Time Sulfa (Sulfonamide Allergy Unknown PRURITUS, Verified 12/28/18 08:42 Antibiotics) RASH Home Medications Home Medications Medication Instructions Recorded Confirmed Type acetaminophen [Acetaminophen Extra 500 mg PO Q6H PRN 12/14/18 12/28/18 History Strength] calcium carbonate-vitamin D3 1 tab PO BID 12/14/18 12/28/18 History cyanocobalamin (vitamin B-12) 1,000 mcg PO Q OTHER DAY 12/14/18 12/28/18 History [Vitamin B-12] gabapentin 300 mg PO TID 12/14/18 12/28/18 History lisinopril 10 mg PO QAM 12/14/18 12/28/18 History metoprolol succinate 50 mg PO QPM 12/14/18 12/28/18 History rabeprazole [AcipHex] 20 mg PO QAM 12/14/18 12/28/18 History rosuvastatin 10 mg PO QPM 12/14/18 12/28/18 History Past Med/Surg History Medical History Anemia Arthritis GERD (gastroesophageal reflux disease) controlled Hyperlipidemia Hypertension Spinal stenosis Surgical History History of lumbar fusion History of varicose vein ligation and stripping Hx of cervical spine surgery fusion Hx of left cataract extraction Hx of right cataract extraction Social History Preferred Language: [place] Communication Ability: Effective Beliefs That Will Affect Care: None Current Living Situation: Spouse Feels Safe at Home: Yes Smoking Status: Never smoker Do You Dip or Chew Tobacco: No ; Second Hand Exposure: No ; Hx Alcohol Use: No Hx Substance Use: No Physical Exam Physical Exam: Patient is alert and oriented neurologically intact. Results & Data Vital Signs (Past 12 Hours) Vital Signs Temp Pulse Resp BP Pulse Ox 12/28/18 09:00 36.5 C 70 18 178/75 H 99
[2018-12-28] MEDS ORDERED: ePHEDrine sulfate 50 MG/ML AMP IV PRN (10:09)
[2018-12-28] MEDS ORDERED: fentaNYL citrate 100 MCG/2 ML VIAL IV PRN (10:09)
[2018-12-28] MEDS ORDERED: ATROPINE SULFATE 0.1 MG/ML 10ML SYR IV PRN (10:09)
[2018-12-28] MEDS ORDERED: BUPIVACAINE/EPINEPHRINE 0.5% MPF 1:200,000 30 ML VIAL ONE (10:26)
[2018-12-28] MEDS ORDERED: BACITRACIN INJ 50,000 UNIT VIAL ONE (10:26)
[2018-12-28] MEDS ORDERED: FLOSEAL HEMOSTATIC MATRIX 10ML TOP ONE (11:30)
[2018-12-28] MEDS ORDERED: raNITIdine HCl 25 MG/ML VIAL IV ONE ×2 (11:56→13:11)
[2018-12-28] MEDS ORDERED: LARYING-O-JET KIT (LTA) ONE (11:56)
[2018-12-28] MEDS ORDERED: KETOROLAC 30 MG/ML VIAL ONE (12:56)
[2018-12-28] MEDS ORDERED: ePHEDrine sulfate 50 MG/ML SYR ONE (12:56)
--- NOTE | 2018-12-28 12:58 | Operative Report ---
Post Operative Report Pre & Post Diagnosis Operation Date: 12/28/18 10:25 Pre-Op Diagnosis: Spinal stenosis, lumbar region with neurogenic claudication L4-S1 Spondylolisthesis L5-S1 Post-Op Diagnosis: Same Procedure Operation Date: 12/28/18 10:25 Actual Procedures #1 removal of posterior instrumentation L2-3 L3-4. #2 expiration of fusion L2-3 L3-4 per #3 lumbar decompression with bilateral medial facetectomies foraminotomies L4-5 L5-S1 per #4 posterior spinal fusion L4-5 L5-S1. #5 placement of posterior instrumentation L4-5 L5-S1. #6 interbody fusion L5-S1. #7 placed a peek cage 9 x 22 mm at L5-S1. #8 placement of local autograft in the posterior lateral gutters. #9 placement infuse collagen sponge, master graft in the posterior lateral gutters and ostial amp and interbody space. Surgeon Amish Kelly, Bark Fitter Ana Ratliff Estimated Blood Loss 175 Findings Consistent with Post-Op Diagnosis Specimens None Indications This is a 70-year-old female well-known to the presents with above-mentioned diagnosis after failing extensive course of nonoperative care is here for surgical intervention. Description of Procedure Patient was met with identified and informed consent obtained. Patient was then taken to the operative suite underwent intubation placed in the prone position the Shabbir table on top of the Anand frame. All bony prominences well-padded eyes inspected to ensure no external pressure placed upon the peer at this point the lumbar spine was prepped and draped in the normal sterile fashion. Sharp dissection with the assistance of Bovie cautery was performed down to and exposing the instrumentation at L2-L3 and L4 as well as the lamina L and transverse processes of L4-L5 and sacral ala bilaterally. I then proceeded to remove the hardware at L2-L3 on L4 bilaterally exploring the fusion mass noting it to be intact. Them complaint performed a complete laminectomy of L5 and L4. Obvious pars defect at L5 noted. Pedicle screws were then placed in L4-L5 and S1 levels bilaterally with assistance of fluoroscopy and appropriate size chadd placed. By way of a transforaminal approach on the right complete discectomy of L5-S1 was performed endplates curetted to subcortical bleeding bone and a 9 x 22 mm peek cage filled with osteo-amp bone graft tapped in position. The rods were then locked in final position bilaterally. I did place a small amount of DuraGen over the left lateral recess as this dura appeared quite thin after decompression. No leak was noted however. Rods were locked in final position 15 round MARTHA drain inserted. The incision was closed with 1 Vicryl in the fascia 2-0 Vicryl subcutaneous and 4-0 Monocryl for final closure. Steri-Strip sterile dressings placed. Patient will continue PACU stable condition. Please note Ana Ratliff present throughout the entire procedure involved the patient positioning complex portions of the surgery and final skin closure. Lastly spinal cord monitoring was utilized that the procedure no changes noted. I attest to the content of the Intraoperative Record and any orders documented therein. Any exceptions are noted below.
--- NOTE | 2018-12-28 13:32 | Fluoroscopy Report ---
LUMBAR SPINE, INTRAOPERATIVE FLUOROSCOPY HISTORY: L2 L4 hardware removal and fusion. FLUOROSCOPY TIME: 27 seconds. FINDINGS: Intraoperative fluoroscopy was provided for the lumbar spine. 2 fluoroscopic spot images we re obtained. Posterior decompression fusion from L4 through S1 with pedicle screws and rods. The hard pedroza appears intact. IMPRESSION: Fluoroscopy provided for a L4-S1 posterior decompression and fusion. Electronically signed by: Chris Baeza M.D. 12/28/2018 1:31 PM
--- NOTE | 2018-12-28 13:36 | Anesthesiology Progress Note ---
Date of Service December 28, 2018 Anesthesia Post Procedure Vital Signs Vital Signs: Temp Pulse Resp BP BP Pulse Ox 12/28/18 13:25 73 16 164/82 H 100 12/28/18 13:15 36.8 C 81 16 162/68 H 99 12/28/18 09:00 36.5 C 70 18 178/75 H 99 Pain Intensity Back: Pain Intensity: 8 Transfer of Care Handoff Completed per policy Notes Mental Status: alert / awake / arousable Patient Amnestic to Procedure: Yes Nausea / Vomiting: adequately controlled Pain: adequately controlled Airway Patency, RR, SpO2: stable & adequate BP & HR: stable & adequate Hydration State: stable & adequate Anesthetic Complications: no major complications apparent and Pt Satisfied with anesthetic care
[2018-12-28] MEDS ORDERED: DO NOT ADMINISTER FLU VACCINE PRN (14:13)
[2018-12-28] MEDS ORDERED: LORazepam 0.5 MG TAB PO PRN (14:13)
[2018-12-28] MEDS ORDERED: ONDANSETRON 4 MG TAB PO PRN (14:13)
[2018-12-28] MEDS ORDERED: LORazepam 0.5 MG/1 ML VIAL IV PRN (14:13)
[2018-12-28] MEDS ORDERED: SOD PHOSPHATE/SOD BIPHOSPHATE ENEMA 132 ML BTL PR PRN (14:13)
[2018-12-28] MEDS ORDERED: ONDANSETRON INJ 2 MG/ML 2 ML VIAL IV PRN (14:13)
[2018-12-28] MEDS ORDERED: HYDROmorphone INJ 0.5 MG/0.5 ML SYR IV PRN (14:13)
[2018-12-28] MEDS ORDERED: BISACODYL 10 MG SUPP PR PRN (14:13)
[2018-12-28] MEDS ORDERED: TRAMADOL HCL 50 MG TABLET PO PRN (14:13)
[2018-12-28] MEDS ORDERED: NALOXONE HCL 0.4 MG/1 ML VIAL/CARP IV PRN (14:13)
[2018-12-28] MEDS ORDERED: DO NOT ADMINISTER PNEUMOCOCCAL VACCINE PRN (14:13)
[2018-12-28] MEDS ORDERED: PROMETHAZINE HCL 12.5 MG in SODIUM CHLORIDE 0.9% 50 ML IV PRN (14:13)
[2018-12-28] MEDS ORDERED: ALUMINUM/MAGNESIUM SUSP 30 ML UDC PO PRN (14:13)
[2018-12-28] MEDS ORDERED: FAMOTIDINE 20 MG TAB PO PRN (14:13)
[2018-12-28] MEDS ORDERED: ACETAMINOPHEN 500 MG TAB PO PRN (14:13)
[2018-12-28] MEDS ORDERED: METOCLOPRAMIDE HCL INJ 5 MG/ML 2 ML VIAL IV PRN (14:13)
[2018-12-28] MEDS ORDERED: ACETAMINOPHEN 1,000 MG/100 ML VIAL IV PRN (14:13)
[2018-12-28] MEDS ORDERED: MAGNESIUM HYDROXIDE SUSP 30 ML UDC PO PRN (14:13)
[2018-12-28] MEDS: SODIUM CHLORIDE 0.9% 1000ML 1,000 ML IV SCH (15:26)
[2018-12-28] MEDS: CYANOCOBALAMIN 500 MCG TABLET (VITAMIN B-12) PO SCH (15:27)
[2018-12-28] MEDS: OXYCODONE HCL IR 5 MG TAB (IMMEDIATE RELEASE) PO PRN (15:39)
--- NOTE | 2018-12-28 15:41 | Hospitalist Consultation ---
Date of Consultation December 28, 2018 Assessment & Plan (1) Spinal stenosis, lumbar region with neurogenic claudication: - POD# 0, L5-S1 decompression fusion, hardware removal by Dr. Kelly - activity and wound care orders as per ortho - pain control with bowel regimen - PT/OT - monitor H/H for acute blood loss anemia and transfuse blood products PRN - EBL 175 cc (2) HTN (hypertension): -BP controlled, continue lisinopril and metoprolol (3) HLD (hyperlipidemia): -Continue statin (4) GERD (gastroesophageal reflux disease): -Continue PPI (5) DVT prophylaxis: -Teds/SCDs as per spine orthopedics Thank you for this consultation. We will follow the patient with you during their hospital stay. You can reach a member of the [facility] Hospitalist Team 02/11 via pager @ [phone]. Supervising Physician Co-Signing Physician Notes Patient is a 78-year-old female with history of hypertension, lipidemia, spinal stenosis with neurogenic claudication seen and examined postop after having lumbar decompression fusion by Dr. Kelly. Patient is doing well postop. Denies any chest pain, shortness of breath, nausea, vomiting, dizziness, abdominal pain, focal weakness, numbness or tingling extremities. Offers no complaints at this time. On exam patient is moderately built and nourished, no apparent distress, normocephalic atraumatic, lungs are clear to auscultation, S1-S2, no murmur, abdomen soft nontender, bowel sounds are present, no guarding or rigidity, back--surgical site in dressing, +drain, grossly normal grossly no focal neurological deficits, trace pedal edema. Patient is consulted for postop medical management. Monitor for postop anemia. Wound care, pain control, activity, DVT prophylaxis as per primary team. Continue bowel regimen to prevent constipation. Continue home medications for hypertension, hyp erlipidemia, GERD. Dr. segura will follow up the patient starting 12/29/2018. I personally reviewed the record. Patient is interviewed and examined at bedside. Patient's care is coordinated with Anel George OCCUPATIONAL NURSE. Please refer to the documentation above for details of patient's presentation and for discussion of other issues. History of Present Illness Reason for Consultation: Postop medical management Requesting Physician: Dr. Kelly Attending Physician: Dr. Porter History of Present Illness 78-year-old female who is status post L5-S1 decompression and fusion, hardware removal today by Dr. Kelly. Postoperatively, the patient is doing well. She reports her pain is well controlled. She denies any numbness or tingling to lower extremities. Currently, patient is ordered bed rest with lying flat per spine orthopedics. Patient denies chest pain shortness of breath. No lightheadedness, dizziness. She denies abdominal pain and nausea. Allergies Allergy/AdvReac Type Severity Reaction Status Date / Time Sulfa (Sulfonamide Allergy Unknown PRURITUS, Verified 12/28/18 08:42 Antibiotics) RASH Home Medications Home Medications Medication Instructions Recorded Confirmed Type acetaminophen [Acetaminophen Extra 500 mg PO Q6H PRN 12/14/18 12/28/18 History Strength] calcium carbonate-vitamin D3 1 tab PO BID 12/14/18 12/28/18 History cyanocobalamin (vitamin B-12) 1,000 mcg PO Q OTHER DAY 12/14/18 12/28/18 History [Vitamin B-12] gabapentin 300 mg PO TID 12/14/18 12/28/18 History lisinopril 10 mg PO QAM 12/14/18 12/28/18 History metoprolol succinate 50 mg PO QPM 12/14/18 12/28/18 History rabeprazole [AcipHex] 20 mg PO QAM 12/14/18 12/28/18 History rosuvastatin 10 mg PO QPM 12/14/18 12/28/18 History Patient History Medical History GERD (gastroesophageal reflux disease) (Chronic) HLD (hyperlipidemia) (Chronic) HTN (hypertension) (Chronic) Arthritis (Chronic) GERD (gastroesophageal reflux disease) (Chronic) controlled Spinal stenosis (Chronic) Surgical History History of neck surgery (Chronic) History of back surgery (Chronic) History of varicose vein ligation and stripping (Chronic) Hx of left cataract extraction (Chronic) Hx of right cataract extraction (Chronic) Family History Other Unknown family medical history Social History Preferred Language: Azeri Communication Ability: Effective Beliefs That Will Affect Care: None Current Living Situation: Spouse Feels Safe at Home: Yes Smoking Status: Never smoker Do You Dip or Chew Tobacco: No ; Second Hand Exposure: No ; Hx Alcohol Use: No Hx Substance Use: No Review of Systems Review of Systems: ROS per HPI, all other systems reviewed and negative Physical Exam Physical Exam: Please refer to Dr. Porter's addendum for physical exam Results & Data Vital Signs (Past 12 Hours) Vital Signs Temp Pulse Pulse Resp BP BP Pulse Ox 12/28/18 14:10 36.7 C 64 16 152/80 H 100 12/28/18 13:45 36.6 C 67 16 163/70 H 100 12/28/18 13:35 64 16 153/65 H 100 12/28/18 13:25 73 16 164/82 H 100 12/28/18 13:15 36.8 C 81 16 162/68 H 99 12/28/18 09:00 36.5 C 70 18 178/75 H 99
[2018-12-28] MEDS: GABAPENTIN 300 MG CAP PO SCH ×2 (16:30→20:26)
[2018-12-28] MEDS: CEFAZOLIN 1000MG 1,000 MG/7.5 ML SYR IV SCH (18:45)
[2018-12-28] MEDS: CALCIUM 600MG + VIT D 400 IU TAB PO SCH (20:25)
[2018-12-28] MEDS: METOPROLOL SUCC 50MG EXT REL TAB PO SCH (20:25)
[2018-12-28] MEDS: ROSUVASTATIN CALCIUM 10 MG TAB PO SCH (20:25)
[2018-12-28] MEDS: DOCUSATE SODIUM/SENNA 50/8.6MG TAB PO SCH (20:25)
[2018-12-29] MEDS: CEFAZOLIN 1000MG 1,000 MG/7.5 ML SYR IV SCH (03:36)
[2018-12-29] MEDS: SODIUM CHLORIDE 0.9% 1000ML 1,000 ML IV SCH (05:38)
[2018-12-29] MEDS: POLYETHYLENE (MIRALAX) 17 GM PACK PO SCH ×3 (05:45→17:59)
[2018-12-29 06:39] LABS: Basophils # (auto) 0.01 K/uL (0-0.2); Basophils % (auto) 0.1 %; Eosinophils # (auto) 0.01 K/uL (0-0.5); Eosinophils % (auto) 0.1 %; Hematocrit (blood only) 30.1 % (37-47); Hemoglobin 9.9 g/dL (12.0-16.0); Immature Granulocytes # (auto) 0.01 K/uL (0.00-0.02); Immature Granulocytes % (auto) 0.1 %; Lymphocytes # (auto) 1.11 K/uL (1.2-3.4); Lymphocytes % (auto) 13.6 %; Mean Corpuscular Hemoglobin 31.7 pg (25-34); Mean Corpuscular Hgb Conc 32.9 g/dL (32-36); Mean Corpuscular Volume 96.5 fL (80-100); Mean Platelet Volume 9.1 fL (7.4-10.4); Monocytes # (auto) 0.77 K/uL (0.11-0.59); Monocytes % (auto) 9.4 %; Neutrophils # (auto) 6.24 K/uL (1.4-6.5); Neutrophils % (auto) 76.7 %; Platelet Count 147 K/uL (130-400); RDW Coefficient of Variation 12.8 % (11.5-14.5); RDW Standard Deviation 44.9 fL (36.4-46.3); Red Blood Count 3.12 M/uL (4.2-5.4); White Blood Count 8.15 K/uL (4.8-10.8)
[2018-12-29 07:09] LABS: BUN Creatinine Ratio 11.6 (10-20); Calcium 8.8 mg/dl (8.5-10.1); Creatinine Clr Calc Pharmacy 57.4 ml/min; Est GFR (African American) 96.2
[2018-12-29] MEDS: GABAPENTIN 300 MG CAP PO SCH ×3 (08:26→20:40)
[2018-12-29] MEDS: LISINOPRIL 10 MG TAB PO SCH (08:27)
[2018-12-29] MEDS: PANTOprazole 40 MG TAB PO SCH (08:27)
[2018-12-29] MEDS: CALCIUM 600MG + VIT D 400 IU TAB PO SCH ×2 (08:29→20:40)
--- NOTE | 2018-12-29 09:24 | Orthopedic Progress Note ---
Date of Service December 29, 2018 Assessment & Plan (1) Spinal stenosis, lumbar region with neurogenic claudication: Today and will begin bed to chair only. If she tolerates this well we may advance physical therapy Wednesday. Present on Admission?: Yes Subjective Patient states she is comfortable at this time. She has no leg pain. She has no headaches or nuchal complaints. She has no nausea or vomiting. Physical Exam Physical Exam: On exam he had her sit up in bed. She tolerated this well. She is excellent strength testing bilateral lower extremities. Results & Data Vital Signs (Past 12 Hours) Vital Signs Temp Pulse Resp BP BP Pulse Ox 12/29/18 07:25 36.8 C 61 16 130/62 100 12/29/18 03:08 36.8 C 69 16 129/71 97 12/28/18 23:03 36.7 C 70 16 128/74 99
--- NOTE | 2018-12-29 10:03 | Anesthesiology Progress Note ---
Date of Service December 29, 2018 Anesthesia Post Procedure Vital Signs Vital Signs: Temp Pulse Pulse Resp BP BP Pulse Ox 12/29/18 07:25 36.8 C 61 16 130/62 100 12/29/18 03:08 36.8 C 69 16 129/71 97 12/28/18 23:03 36.7 C 70 16 128/74 99 12/28/18 20:23 82 133/80 12/28/18 20:08 36.6 C 78 16 139/81 96 12/28/18 17:22 36.6 C 75 16 140/84 100 12/28/18 16:13 36.7 C 76 16 160/94 H 100 12/28/18 15:30 36.6 C 77 16 163/89 H 100 12/28/18 14:10 36.7 C 64 16 152/80 H 100 12/28/18 13:45 36.6 C 67 16 163/70 H 100 12/28/18 13:35 64 16 153/65 H 100 12/28/18 13:25 73 16 164/82 H 100 12/28/18 13:15 36.8 C 81 16 162/68 H 99 Notes Mental Status: alert / awake / arousable and participated in evaluation Nausea / Vomiting: adequately controlled Pain: adequately controlled Airway Patency, RR, SpO2: stable & adequate BP & HR: stable & adequate Hydration State: stable & adequate
--- NOTE | 2018-12-29 18:11 | Hospitalist Progress Note ---
Date of Service December 29, 2018 Assessment & Plan (1) Spinal stenosis, lumbar region with neurogenic claudication: - POD# 1, L5-S1 decompression fusion, hardware removal by Dr. Kelly - activity and wound care orders as per ortho -Pain appears to be well controlled, (2) Acute blood loss as cause of postoperative anemia: Hemoglobin drop noted to 13 12/21/2018 as part of preop lab) two 9.9, patient denies of any dizzy spell lightheadedness Secondary to postop blood loss Patient does not have any symptom, no dizzy spell or lightheadedness No indication for transfusion Repeat H&H in a.m. (3) HTN (hypertension): -BP controlled, continue lisinopril and metoprolol (4) HLD (hyperlipidemia): -Continue statin (5) GERD (gastroesophageal reflux disease): -Continue PPI (6) DVT prophylaxis: -Teds/SCDs as per spine orthopedics Thank you for this consultation. We will follow the patient with you during their hospital stay. You can reach a member of the [facility] Hospitalist Team 02/11 via pager @ [phone]. Subjective Patient states she is comfortable at this time. She has no leg pain. She has no headaches or nuchal complaints. She has no nausea or vomiting. Physical Exam Constitutional: WD/WN, vitals as above no acute distress Eyes: PERRL, conjunctivae normal, anicteric sclerae ENMT: external ear and nose normal, oropharynx normal Neck: trachea midline, no thyromegaly Respiratory: normal respiratory effort, lungs clear to auscultation Cardiovascular: RRR, no murmur, no edema Gastrointestinal (Abdomen): normal bowel sounds, soft, nontender, no hepatosplenomegaly Musculoskeletal: no cyanosis or clubbing, extremities motor strength 5/5 Skin: no rashes, warm and dry Neurologic: PERRL, EOMI, accommodation nl, no face palsy, no dysarthria Psychiatric: A+Ox3, euthymic affect Results & Data Vital Signs (Past 12 Hours) Vital Signs Temp Pulse Resp BP Pulse Ox 12/29/18 16:32 37.5 C 66 16 138/87 97 12/29/18 12:00 37.1 C 68 16 121/69 94 12/29/18 07:25 36.8 C 61 16 130/62 100
[2018-12-29] MEDS: METOPROLOL SUCC 50MG EXT REL TAB PO SCH (20:39)
[2018-12-29] MEDS: ROSUVASTATIN CALCIUM 10 MG TAB PO SCH (20:40)
[2018-12-29] MEDS: DOCUSATE SODIUM/SENNA 50/8.6MG TAB PO SCH (20:40)
[2018-12-30] MEDS: POLYETHYLENE (MIRALAX) 17 GM PACK PO SCH ×3 (00:47→13:58)
[2018-12-30] MEDS: LISINOPRIL 10 MG TAB PO SCH (08:23)
[2018-12-30] MEDS: PANTOprazole 40 MG TAB PO SCH (08:23)
[2018-12-30] MEDS: CALCIUM 600MG + VIT D 400 IU TAB PO SCH ×2 (08:23→20:27)
[2018-12-30] MEDS: GABAPENTIN 300 MG CAP PO SCH ×3 (08:23→20:27)
[2018-12-30] MEDS: ACETAMINOPHEN 500 MG TAB PO PRN (09:54)
--- NOTE | 2018-12-30 10:51 | Orthopedic Progress Note ---
Date of Service December 30, 2018 Assessment & Plan (1) Spinal stenosis, lumbar region with neurogenic claudication: Will initiate physical therapy today monitor her MARTHA output anticipate discharge home later half this weekend. Present on Admission?: Yes Subjective Back pain is controlled leg pain improved. She denies any nausea vomiting or headaches. Physical Exam Physical Exam: Patient is in the chair at the bedside is good strength testing. Results & Data Vital Signs (Past 12 Hours) Vital Signs Temp Pulse Resp BP BP Pulse Ox 12/30/18 07:45 37.3 C 59 L 16 112/68 95 12/29/18 23:07 37.3 C 69 16 108/67 96
[2018-12-30] MEDS: CYANOCOBALAMIN 500 MCG TABLET (VITAMIN B-12) PO SCH (14:00)
--- NOTE | 2018-12-30 18:29 | Hospitalist Progress Note ---
Date of Service December 30, 2018 Assessment & Plan (1) Spinal stenosis, lumbar region with neurogenic claudication: - POD# 2 , L5-S1 decompression fusion, hardware removal by Dr. Kelly - activity and wound care orders as per ortho -Pain appears to be well controlled, (2) Acute blood loss as cause of postoperative anemia: Hemoglobin drop noted to 13 12/21/2018 as part of preop lab) two 9.9, patient denies of any dizzy spell lightheadedness Secondary to postop blood loss Patient does not have any symptom, no dizzy spell or lightheadedness No indication for transfusion Repeat H&H in a.m. (3) HTN (hypertension): -BP controlled, continue lisinopril and metoprolol (4) HLD (hyperlipidemia): -Continue statin (5) GERD (gastroesophageal reflux disease): -Continue PPI (6) DVT prophylaxis: -Teds/SCDs as per spine orthopedics Thank you for this consultation. We will follow the patient with you during their hospital stay. You can reach a member of the [facility] Hospitalist Team 02/11 via pager @ [phone]. Subjective Doing well with physical therapy no complaint of shortness of breath, Back pain has improved No fever or chills Physical Exam Constitutional: WD/WN, vitals as above no acute distress Eyes: PERRL, conjunctivae normal, anicteric sclerae ENMT: external ear and nose normal, oropharynx normal Neck: trachea midline, no thyromegaly Respiratory: normal respiratory effort, lungs clear to auscultation Cardiovascular: RRR, no murmur, no edema Gastrointestinal (Abdomen): normal bowel sounds, soft, nontender, no h epatosplenomegaly Musculoskeletal: no cyanosis or clubbing, extremities motor strength 5/5 Skin: no rashes, warm and dry Neurologic: PERRL, EOMI, accommodation nl, no face palsy, no dysarthria Psychiatric: A+Ox3, euthymic affect Results & Data Vital Signs (Past 12 Hours) Vital Signs Temp Pulse Resp BP Pulse Ox 12/30/18 16:59 36.6 C 65 16 120/76 100 12/30/18 07:45 37.3 C 59 L 16 112/68 95
[2018-12-30] MEDS: DOCUSATE SODIUM/SENNA 50/8.6MG TAB PO SCH (20:27)
[2018-12-30] MEDS: METOPROLOL SUCC 50MG EXT REL TAB PO SCH (20:27)
[2018-12-30] MEDS: ROSUVASTATIN CALCIUM 10 MG TAB PO SCH (20:27)
[2018-12-31 06:38] LABS: Hematocrit (blood only) 28.2 % (37-47); Hemoglobin 9.2 g/dL (12.0-16.0)
--- NOTE | 2018-12-31 07:55 | Orthopedic Progress Note ---
Date of Service December 31, 2018 Assessment & Plan (1) Spinal stenosis, lumbar region with neurogenic claudication: At this point we will continue to monitor her progress. We will have her up and walking with physical therapy today. If she does well throughout the day today with pain under control she is a candidate to be discharged home tomorrow. Subjective Patient was seen bedside in room 324. She is doing well postoperative day #3. She has some mild back discomfort but that is well controlled with pain medication. She is not having any radicular complaints. She has had no headaches no difficulties with sitting or standing. She denies any other numbness, tingling, or paresthesias. Physical Exam Physical Exam: On exam the patient is alert and oriented. Her abdomen soft nontender calves are supple nontender. Her dressing is clean dry and intact. Her MARTHA is in place but is had 95 cc of drainage on the last shift. The drainage itself is serosanguineous no clear fluid is noted. Results & Data Vital Signs (Past 12 Hours) Vital Signs Temp Pulse Resp BP Pulse Ox 12/30/18 23:10 36.9 C 12/30/18 22:59 38.8 C H 73 16 138/76 92 12/30/18 20:26 73 133/71
[2018-12-31] MEDS: CALCIUM 600MG + VIT D 400 IU TAB PO SCH ×2 (07:58→20:42)
[2018-12-31] MEDS: PANTOprazole 40 MG TAB PO SCH (08:52)
[2018-12-31] MEDS: LISINOPRIL 10 MG TAB PO SCH (08:52)
[2018-12-31] MEDS: GABAPENTIN 300 MG CAP PO SCH ×3 (08:53→20:42)
[2018-12-31] MEDS: ACETAMINOPHEN 500 MG TAB PO PRN (08:53)
--- NOTE | 2018-12-31 15:58 | Hospitalist Progress Note ---
Date of Service December 31, 2018 Assessment & Plan (1) Spinal stenosis, lumbar region with neurogenic claudication: - POD# 3 , L5-S1 decompression fusion, hardware removal by Dr. Kelly Patient has been recovering pretty well postop, Has been doing well with physical therapy, able to get out bed ambulate in the hallway (2) Acute blood loss as cause of postoperative anemia: Patient's preop labs shows: Hemoglobin 13 (on 12/21/2018) Postop hemoglobin drop noted 9.9, patient denies of any dizzy spell lightheadedness Secondary to postop blood loss Patient does not have any symptom, no dizzy spell or lightheadedness Repeat H&H showed stable 9.2, patient remains symptomatic No indication for transfusion (3) HTN (hypertension): -BP controlled, continue lisinopril and metoprolol (4) HLD (hyperlipidemia): -Continue statin (5) GERD (gastroesophageal reflux disease): -Continue PPI (6) DVT prophylaxis: -Teds/SCDs as per spine orthopedics Disposition: As per primary team: Spinal orthopedics " patient is encouraged to be out of bed and walking with physical therapy . If she does well throughout the day today with pain under control she is a candidate to be discharged home tomorrow." Patient is medically stable to be discharged when appropriate by orthopedics team Thank you for this consultation. We will follow the patient with you during their hospital stay. You can reach a member of the [facility] Hospitalist Team 02/11 via pager @ [phone]. Subjective Continues to do well, no complaint of shortness of no fever or chills, blood pressure remains stable, pain significantly improved, participating physical therapy Review of Systems Review of Systems: All systems reviewed & are unremarkable except as noted in HPI & below Physical Exam Constitutional: WD/WN, vitals as above no acute distress Eyes: PERRL, conjunctivae normal, anicteric sclerae ENMT: external ear and nose normal, oropharynx normal Neck: trachea midline, no thyromegaly Respiratory: normal respiratory effort, lungs clear to auscultation Cardiovascular: RRR, no murmur, no edema Gastrointestinal (Abdomen): normal bowel sounds, soft, nontender, no hepatosplenomegaly Musculoskeletal: no cyanosis or clubbing, extremities motor strength 5/5 Skin: no rashes, warm and dry Neurologic: PERRL, EOMI, accommodation nl, no face palsy, no dysarthria Psychiatric: A+Ox3, euthymic affect Results & Data Vital Signs (Past 12 Hours) Vital Signs Temp Pulse Resp BP BP Pulse Ox 12/31/18 15:15 36.9 C 67 16 131/77 98 12/31/18 08:02 37.1 C 70 16 123/73 98
[2018-12-31] MEDS: METOPROLOL SUCC 50MG EXT REL TAB PO SCH (20:41)
[2018-12-31] MEDS: DOCUSATE SODIUM/SENNA 50/8.6MG TAB PO SCH (20:42)
[2018-12-31] MEDS: ROSUVASTATIN CALCIUM 10 MG TAB PO SCH (20:42)
[2019-01-01 06:53] VITALS: BP 100/62; PULSE 70; TEMP 98.6; O2SAT 97
[2019-01-01] MEDS: CALCIUM 600MG + VIT D 400 IU TAB PO SCH (08:41)
[2019-01-01] MEDS: GABAPENTIN 300 MG CAP PO SCH (08:41)
[2019-01-01] MEDS: PANTOprazole 40 MG TAB PO SCH (08:41)
[2019-01-01] MEDS: LISINOPRIL 10 MG TAB PO SCH (08:42)
[2019-01-01] MEDS: OXYCODONE HCL IR 5 MG TAB (IMMEDIATE RELEASE) PO PRN (08:42)
--- NOTE | 2019-01-01 09:11 | Discharge Summary ---
Date of Service January 01, 2019 Admission HPI Per Admitting Provider This is a 70-year-old female well-known to me that presents with worsening back and bilateral leg pain. After failing extensive course of nonoperative care is here for surgical intervention. Discharge Data Consultations 12/28/18 14:13 Consult Case Management - Discharge Planning Routine Consult Hospitalist Routine Procedures Performed Operation Date: 12/28/18 10:25 Actual Procedures p L4-S1 Decompression Posterior Spinal Fusion, L5-S1 Interbody Fusion, Spinal Cord Monitoring, and use of bone morphogenetic protein and Osteoamp allograft(Not Applicable) - Amish Kelly DO s L2-L4 Hardware Removal(Not Applicable) - Amish Kelly DO Hospital Course (1) Spinal stenosis, lumbar region with neurogenic claudication: Patient is a 70-year-old female history physical examination and radiographic images consistent with the above-mentioned diagnosis. For this reason she is brought to the operating room and underwent a lumbar decompression and fusion. This performed by Dr. Kelly under general anesthesia. She left the operating room MARTHA drain Baker in place and was transferred to PACU in stable condition. Due to thinning of the dura she was kept head of bed flat for 24 to 36 hours and then was seen by physical therapy postop day #2. She remained without any type of spinal headache and no increased drainage from her MARTHA. She progressed nicely throughout her hospital stay at this point is met discharge criteria. Her discharge instructions were reviewed in detail she is to follow- up with our office in approximately 2 weeks or sooner if she develops any fevers chills increased drainage or headaches.
== END 2019-01-01 12:27 | disposition home or self-care (01) | DRG 454 ==
LOC: ASU 08:12 → 3E 13:02